=== PATIENT | female | born 1985 | race African-American/Black ===

== ENCOUNTER 2024-09-30 17:39 | Emergency (ER) | payer OTHER ==
[~2024-09-30] VITALS: Ht 157.5 cm; Wt 59.0 kg
[2024-09-30] MEDS ORDERED: IBUPROFEN 600 MG TABLET ONE (19:18)
[2024-09-30] MEDS: IBUPROFEN 600 MG TABLET PO ONE (19:19)
[2024-09-30 19:25] VITALS: BP 116/64; O2SAT 98
== END 2024-09-30 19:26 | disposition home or self-care (01) ==
LOC: ER 17:43
DX: R10.9 Unspecified abdominal pain (principal); F45.0 Somatization disorder; M79.604 Pain in right leg; M79.605 Pain in left leg; M79.642 Pain in left hand; M79.641 Pain in right hand; Z59.00 Homelessness unspecified; V43.62XA Car passenger injured in collision with other type car in traffic accident, initial encounter; Y93.89 Activity, other specified; Y92.488 Other paved roadways as the place of occurrence of the external cause; Y99.8 Other external cause status
CPT/HCPCS: A4606; A4663